=== PATIENT | female | born 2005 | race Two or more races ===

== ENCOUNTER 2025-05-10 16:26 | Emergency (ER) | payer MEDICAID, SELFPAY ==
[2025-05-10 16:28] VITALS: BMI 38.9
[2025-05-10 16:50] VITALS: BP 131/85; PULSE 66; RESP 18; TEMP 36.9; O2SAT 98
--- NOTE | 2025-05-10 16:53 | XR_ITS ---
Examination: Abdomen sonogram, Limited Date and time of exam: May 10, 2025, 1701 hours INDICATION: Right upper abdominal pain 1 week vomiting 2 weeks Technique: Real-time burrows scale transabdominal sonographic images of the upper abdomen obtained. Findings: Normal gallbladder Normal common bile duct 0.4 cm Pancreatic head 2.8 cm Liver 17.3 cm fatty infiltration Normal hepatopetal portal venous Patent IVC IMPRESSION: Normal gallbladder Normal common bile duct Mild hepatomegaly fatty infiltration no focal liver lesions
--- NOTE | 2025-05-10 16:53 | XR_ITS ---
EXAMINATION: Thoracic spine 3 views TECHNIQUE: AP, lateral, coned lateral upper thoracic spine 3 views Date and time: May 10, 2025, 1746 hours INDICATIONS: Upper back pain beginning today. FINDINGS: Satisfactory alignment thoracic vertebral bodies No thoracic fracture No thoracic disc narrowing IMPRESSION: Negative study This plain film study would not exclude soft tissue disc protrusion, clinical correlation advised
--- NOTE | 2025-05-10 16:54 | PD.EDRME ---
Rapid Medical Screening Exam [facility] [place] Arrival date/time: 05/10/25 16:26 19-year-old female with no known medical history presents to the emergency room with a chief complaint of right upper quadrant and right lower quadrant abdominal tenderness x 3 days. Patient is also complaining of thoracic back pain. I have greeted and performed a focused initial assessment of this patient. A comprehensive ED assessment and evaluation of the patient, analysis of all test results, and completion of the medical decision making process will be conducted by additional ED providers. Chief Complaint: Back Pain/Injury Time Seen by Provider: 05/10/25 16:46 Vital signs: Vital Signs Temperature 98.5 F 05/10/25 16:50 Pulse Rate 66 05/10/25 16:50 Respiratory Rate 18 05/10/25 16:50 Blood Pressure 131/85 H 05/10/25 16:50 Pulse Oximetry (%) 98 05/10/25 16:50 Oxygen Delivery Method Room Air 05/10/25 16:50 Vital signs reviewed by provider: Yes Exam: Right upper quadrant abdominal tenderness with palpation. Positive Landa sign Clear bilateral lung sounds Clinical Impression: Cholelithiasis/cholecystitis/abdominal pain
[2025-05-10] MEDS: ACETAMINOPHEN 500 MG TABLET 1000 MG PO (17:16)
[2025-05-10 17:29] LABS: Collection Type, Urine Clean Catch
[2025-05-10 17:38] LABS: Bilirubin,Urine Negative (Negative); Blood,Urine Negative (Negative); Clarity,Urine Clear (Clear/Hazy); Color,Urine Yellow (Lt Yel-Yel); Glucose, Urine Negative (Negative); Ketones,Urine Negative (Negative); Leukocyte Esterase,Urine Negative (Negative); Nitrite,Urine Negative (Negative); PH,Urine 6.0 (5.0-7.0); Protein,Urine 1+ (Neg - Trace); RBC,Urine 3 /hpf (0-3); Specific Gravity,Urine 1.028 (1.001-1.035); Squamous Epithelial Cell,Urine 2 /hpf (0-5); Urobilinogen,Urine Negative mg/dL (0.0-1.0); WBC,Urine 1 /hpf (0-5)
[2025-05-10 17:39] LABS: HCG Qualitative,Urine Negative
[2025-05-10 17:44] LABS: Basophils # (Auto) 0.1 Thou/mm3 (0.0-0.2); Basophils % (Auto) 1 % (0-2.5); Eosinophils # (Auto) 0.2 Thou/mm3 (0.0-0.5); Eosinophils % (Auto) 2 % (0-10); Hematocrit 40.9 % (36.0-46.0); Hemoglobin 13.5 g/dL (12.0-16.0); Immature Granulocytes Auto 0.03 Thou/mm3 (0.00-0.00); Lymphocytes # (Auto) 2.7 Thou/mm3 (1.0-4.8); Lymphocytes % (Auto) 30 % (10-50); Mean Corpuscular HGB Conc 33.0 g/dl (31.0-37.0); Mean Corpuscular Hemoglobin 27.1 pg (25.0-35.0); Mean Corpuscular Volume 82 fL (80-100); Monocytes # (Auto) 0.5 Thou/mm3 (0.0-0.8); Monocytes % (Auto) 6 % (0-12); Neutrophils # (Auto) 5.4 Thou/mm3 (1.8-7.7); Neutrophils % (Auto) 61 % (37-80); Nucleated Red Blood Cell # 0.00 Thou/mm3 (0.00-0.00); Nucleated Red Blood Cell % 0 /100 WBC (0); Platelet Count 362 Thou/mm3 (140-440); RDW Standard Deviation 39.6 fL (36.4-46.3); Red Blood Count 4.98 Miln/mm3 (4.00-5.20); White Blood Count 8.8 Thou/mm3 (3.6-11.0)
[2025-05-10 17:55] LABS: Alanine Aminotransferase 22 U/L (10-49); Albumin, Serum 4.7 gm/dL (3.5-5.0); Albumin/Globulin Ratio 1.5 (1.2-2.2); Alkaline Phosphatase 101 U/L (46-116); Anion Gap 10 (7-16); Aspartate Amino Transferase 29 U/L (0-34); BUN/Creatinine Ratio 13 Ratio (12-20); Bilirubin,Total 0.3 mg/dL (0.3-1.2); Blood Urea Nitrogen 9 mg/dL (9-23); Calcium 9.2 mg/dL (8.3-10.6); Calcium (Corrected) 9.2 mg/dL (8.5-10.1); Carbon Dioxide 25.8 mMol/L (20.0-31.0); Chloride 105 mMol/L (98-107); Creatinine (Component) 0.7 mg/dL (0.6-1.3); Estimated Creatinine Clearance 155.4 mL/min (>60); Globulin 3.1 gm/dL (2.3-3.5); Glucose 89 mg/dL (74-106); Lipase 29 U/L (12-53); Osmolality,Calculated 278 (275-295); Potassium 4.2 mMol/L (3.4-5.1); Sodium 141 mMol/L (136-145); Total Protein 7.8 gm/dL (5.7-8.2); eGFR > 60 See Note
--- NOTE | 2025-05-10 20:02 | XR_ITS ---
Examination: Abdomen AP single view Technique: AP portable supine abdomen, single view Exam date and time: May 10, 2025, 2008 hours INDICATIONS: Abdominal pain beginning 1 month ago FINDINGS: Mild air and stool throughout the colon No obstruction No free air No abnormal calcific densities IMPRESSION: Nonobstructive bowel gas pattern
--- NOTE | 2025-05-10 20:10 | EDNOTE_ITS ---
ED General RME/HPI General Chief complaint: Back Pain/Injury Stated complaint: R UPPER BACK PAIN SINCE LAST NIGHT, RUQ PAIN Time Seen by Provider: 05/10/25 16:46 Arrival date/time: 05/10/25 16:26 RME / HPI RME / HPI narrative: 05/10/25 16:26 19-year-old female with no known medical history presents to the emergency room with a chief complaint of right upper quadrant and right lower quadrant abdominal tenderness x 3 days. Patient is also complaining of thoracic back pain. I have greeted and performed a focused initial assessment of this patient. A comprehensive ED assessment and evaluation of the patient, analysis of all test results, and completion of the medical decision making process will be conducted by additional ED providers. Exam: Right upper quadrant abdominal tenderness with palpation. Positive Landa sign Clear bilateral lung sounds Impression: Cholelithiasis/cholecystitis/abdominal pain Related Data Previous Rx's ?Medication ?Instructions ?Recorded hyoscyamine sulfate 0.125 mg 0.125 mg PO QID PRN dyspe psia 1 05/10/25 sublingual tablet week #21 tabs ibuprofen 600 mg tablet 600 mg PO TID PRN abdominal pain 3 05/10/25 days #10 tabs Allergies Allergy/AdvReac Type Severity Reaction Status Date / Time No Known Allergies Allergy Verified 05/10/25 16:31 ED Exam Narrative Physical exam: Physical Exam: GENERAL: Awake, tearful, appears stated age, morbidly obese HEENT: NC/AT. Moist mucosa. PERRLA/EOMI. CARDIO: Heart RRR, no obvious murmurs, no JVD. PULM: No coughing or visible SOB. Lungs CTA B/L. GI: Abdomen soft, but tender to palpation especially in the right upper quadrant, mass versus organomegaly noted right upper quadrant, no rigidity noted , borborygmi apparent SKIN/MSK/EXT: No wounds/discoloration/rashes/edema/amputations noted. +Pedal pulses present B/L. NEURO: Oriented x3, Moves extremities x4, no focal neurologic deficits noted. Course Quality Measures none Orders Category Date Time Status CT abdomen pelvis wo con Stat Exams 05/10/25 20:20 Completed US gall bladder Stat Exams 05/10/25 16:53 Completed XR abdomen 1V Stat Exams 05/10/25 20:02 Completed XR thoracic spine 2V Stat Exams 05/10/25 16:53 Completed CBC Stat Lab 05/10/25 16:58 Completed CMP [Comprehensive Metabolic Panel] Stat Lab 05/10/25 16:58 Completed HCG Qualitative,Urine Stat Lab 05/10/25 17:17 Completed Lipase Stat Lab 05/10/25 16:58 Completed UA [Urinalysis] Stat Lab 05/10/25 17:17 Completed Urine Culture Stat Lab 05/10/25 17:17 Received Acetaminophen Tab [Tylenol ES Tab] Med 05/10/25 16:53 Discontinued 1,000 mg PO X1 ONE Ibuprofen Tab [Motrin Tab] Med 05/10/25 20:05 Discontinued 600 mg PO X1 ONE Vital Signs Vital signs: Vital Signs Temperature 98.5 F 05/10/25 16:50 Pulse Rate 66 05/10/25 16:50 Respiratory Rate 18 05/10/25 16:50 Blood Pressure 131/85 H 05/10/25 16:50 Pulse Oximetry (%) 98 05/10/25 16:50 Oxygen Delivery Method Room Air 05/10/25 16:50 Discharge Plan Plan Patient Disposition: HOME (Self Care) Discharge Disposition comment: Please take sublingual hyoscyamine 0.125 mg by mouth 4 times a day as needed for abdominal pain Please take ibuprofen 600mg tablet 3 times a day as needed for abdominal pain Please follow-up with your PCP within 5 days and ask for GI referral for possible need for colonoscopy If your symptoms worsen or if you develop fever/chills, severe abdominal pain, vomiting or dizziness please come back to the emergency room. Patient condition on transfer: Stable Prescriptions/Referrals Prescriptions/Med Rec: New hyoscyamine sulfate 0.125 mg tablet, sublingual 0.125 mg PO QID PRN (Reason: dyspepsia) 7 Days Qty: 21 0RF ibuprofen 600 mg tablet 600 mg PO TID PRN (Reason: abdominal pain) 3 Days Qty: 10 0RF Referrals: No Primary/Family,Physician [Primary Care Provider] - In 1 week Problem List Clinical Impression: IBS (irritable bowel syndrome) Patient/Caregiver Discharge Instructions Education Materials: IBS Diet Lifestyle, ED Irritable Bowel Syndrome Print Language: Persian Stand Alone Forms: Liz Award Info., Patient Portal Info Letter MDM Narrative MDM hospital course (for use when minimal MDM required): HPI: 19-year-old female with no significant past medical history other than morbid obesity presenting to the ED on 05/10 with diffuse abdominal pain especially noted in the right upper quadrant. Patient states that the pain started about 2 weeks ago has been on and off but worsened this morning to the point where she c ould not tolerated in any longer. Patient states 2 weeks ago she started developing constipation along with some episode of vomiting. Patient states that she been vomiting for about 2 weeks but not every day. She states the abdominal pain feels like a stabbing sensation in her right upper quadrant; however, she denies having any fever/chills, diarrhea, hematemesis, melena or hematochezia. Patient denies having any intra-abdominal surgeries in the past. She has tried [id number] Tylenol along with natural remedies such as tea which did not help with the abdominal symptoms. She also complains of thoracic back pain which has been ongoing for several months and is associated with movement or prolonged periods of rest. On examination, please refer to the physical exam above: Patient did present mildly hypertensive 131/85, heart rate of 66, respiratory of 18, afebrile satting 98 on room air. Laboratory findings were largely unremarkable with CBC showing no leukocytosis and no anemia, CMP is also largely were unremarkable. Lipase of 29 and LFTs within normal limits. Urinalysis?not showing signs of infection. Ultrasound gallbladder shows normal gallbladder with normal common bile duct with mild hepatomegaly noted with fatty infiltration without any focal liver lesions, thoracic spine x-rays negative and abdominal x-ray shows nonobstructive bowel gas pattern. Ct Abd/P shows Fatty infiltration throughout the liver, no gallstones, negative for pancreatitis, no renal or ureteral calculi, no hydronephrosis, normal appendix, no bowel obstruction or diverticulitis. #Possible right upper quadrant mass - mild hepatomegaly/MASLD #IBS As noted above in HPI, patient been having 2 weeks of abdominal pain localized mostly to the right upper quadrant Imaging studies so far have been negative CT abdomen pelvis without contrast no concerning findings. Plan: Patient made of aware of following instructions: Please take sublingual hyoscyamine 0.125 mg by mouth 4 times a day as needed for abdominal pain Please take ibuprofen 600mg tablet 3 times a day as needed for abdominal pain Please follow-up with your PCP within 5 days and ask for GI referral for possible need for colonoscopy If your symptoms worsen or if you develop fever/chills, severe abdominal pain, vomiting or dizziness please come back to the emergency room. Patient seen and assessed with attending Dr. Dominique Howe, DO PGY-2 Internal Medicine - [facility] Medication Administration(s) Medication Administration History Discontinued Medications Acetaminophen (Acetaminophen 500 Mg Tablet) 1,000 mg PO X1 ONE Stop: 05/10/25 16:54 Last Admin: 05/10/25 17:16 Dose: 1,000 mg Documented By: ERNA Ibuprofen (Ibuprofen Tab 600 Mg Tablet) 600 mg PO X1 ONE Stop: 05/10/25 20:06 Last Admin: 05/10/25 20:11 Dose: 600 mg Documented By: LUCIUS
[2025-05-10] MEDS: IBUPROFEN TAB 600 MG TABLET PO (20:11)
--- NOTE | 2025-05-10 20:20 | XR_ITS ---
Examination: CT abdomen and pelvis without contrast. Coronal 3-D reconstructions. Sagittal 2-D reconstructions. Date and time of exam: May 10, 2025, 2114 hours INDICATIONS: Right upper abdominal pain radiating to the back today CTDI: vol (mGy): 18.01 DLP: (mGycm): 1097 Technique: Axial images of the abdomen have been obtained, 3 mm slice thickness Intravenous contrast material has not been administered. Low dose protocols were performed. One or more of the following dose reduction techniques were used; automated exposure control, adjustment of the mA and/or KV according to patient size, use of iterative reconstruction technique. Findings: Fatty infiltration throughout the liver No gallstones No splenic pancreatic mass No renal or ureteral calculi, no hydronephrosis Aorta normal size Normal appendix No bowel obstruction or diverticulitis No pelvic mass Urinary bladder intact Osseous structures intact IMPRESSION: Fatty infiltration throughout the liver No gallstones Negative for pancreatitis No renal or ureteral calculi, no hydronephrosis Normal appendix No bowel obstruction or diverticulitis
[2025-05-10 22:28] VITALS: BP 116/83; PULSE 67; RESP 18; TEMP 36.6; O2SAT 98
== END 2025-05-10 22:44 | disposition home or self-care (01) ==
PROVIDERS: Nurse Practitioner Family; Emergency Provider Emergency Medicine
DX: K58.1 Irritable bowel syndrome with constipation (principal); K76.0 Fatty (change of) liver, not elsewhere classified; M54.6 Pain in thoracic spine
CPT/HCPCS: 36415; 72070; 74018; 74176; 76705; 80053; 81001; 81025; 83690; 85025; 87086; 99283; A9270